=== PATIENT | male | born 1950 ===

== ENCOUNTER 2019-05-20 05:27 | Day surgery (SDC) | payer OTHER ==
[~2019-05-20 05:27] MED LIST: PROTONIX40 M1 PO
== END 2019-05-20 10:39 | disposition home or self-care (01) ==
LOC: CIR.AMB 05:27 → ADM 09:15 → CIR.AMB 09:15
DX: G56.01 Carpal tunnel syndrome, right upper limb (principal); M65.321 Trigger finger, right index finger